=== PATIENT | male | born 1955 | race African-American/Black ===

== ENCOUNTER 2020-03-23 12:31 | Outpatient (CLI) | payer OTHER ==
--- NOTE | 2020-03-23 13:48 | ULT ---
Exam: Bilateral renal ultrasound HISTORY: Benign prostate hyperplasia COMPARISON: None FINDINGS: Right kidney: Normal cortical echotexture. No hydronephrosis. Right kidney measurements: 9.6 x 6.1 x 5.6 cm. Left kidney: No cortical echotexture. No hydronephrosis. 2.4 x 2.2 x 3.1 cm cyst in the upper pole. 2 .1 x 2.4 x 1.9 cm cyst in the lower pole. Left kidney measurements 6 5.7 x 5.5 x 9.9 cm. Urinary bladder: Normal mucosa. Prevoid bladder volume is 145 mL. Post void volume is 14 mL. IMPRESSION: 1. No hydronephrosis 2. 2 left renal cortical cyst 3. Small post void residual.
== END 2020-03-23 12:32 | disposition home or self-care (01) ==
LOC: BICULT 12:31
PROVIDERS: ATTEND Urology
DX: N40.1 Benign prostatic hyperplasia with lower urinary tract symptoms (principal); N28.9 Disorder of kidney and ureter, unspecified; N28.1 Cyst of kidney, acquired; R39.198 Other difficulties with micturition
CPT/HCPCS: 76770

== ENCOUNTER 2020-10-08 11:57 | Outpatient (CLI) | payer MEDICARE | END 2020-10-08 11:58 | disposition home or self-care (01) | LOC: BICULT 11:57 | PROVIDERS: ATTEND Internal Medicine Cardiovascular Disease | DX: E04.2 Nontoxic multinodular goiter (principal) | CPT/HCPCS: 76536 ==